=== PATIENT | female | born 1950 | race African-American/Black ===

== ENCOUNTER 2017-09-02 08:31 | Emergency (ER) | payer OTHER ==
[~2017-09-02] VITALS: Ht 162.6 cm; Wt 92.6 kg
[~2017-09-02 08:31] MED LIST: Ambien PO; Antivert PO; COLACE100 MG PO; ERGOCALCIF50000 UNIT PO; Ecotrin PO; FIORICET WI1 CAPSULE PO; FLAGYL500 MG PO; FLEXERIL10 MG PO; FLEXERIL5 MG PO; Habitrol,Nicoderm CQ TD; LIDODERM 5% P1 PATCH TD; LIPITOR80 MG PO; Levaquin PO; MOTRIN600 MG PO; MOTRIN800 MG PO; Miralax, Glycolax PO; NO HOME MEDICATIONS; NOHOMEMEDS; NORCO 5/3251 TABLET PO; PANTOPRAZOLE SO40 MG PO; PERCOCET 5/31 TABLET PO; PRAVASTATIN SOD40 MG PO; PROTONIX40 MG PO; Pepcid PO; Pravachol PO; Senokot S,Pericolace PO; Tylenol Regular Stre PO; ULTRAM50 MG PO; ZANTAC150 MG PO
[2017-09-02] MEDS ORDERED: ATARAX,VISTARIL25 MG PO (09:02)
[2017-09-02 09:13] VITALS: BP 110/80
== END 2017-09-02 09:14 | disposition home or self-care (01) ==
LOC: EME 08:31
DX: L50.9 Urticaria, unspecified (principal); R13.10 Dysphagia, unspecified; R68.2 Dry mouth, unspecified; Z91.040 Latex allergy status; E78.5 Hyperlipidemia, unspecified; Z87.891 Personal history of nicotine dependence
CPT/HCPCS: 99281; 99283